=== PATIENT | female | born 1960 ===

== ENCOUNTER 2020-12-21 16:42 | Emergency (ER) | payer OTHER ==
[~2020-12-21] VITALS: Ht 170.2 cm; Wt 66.7 kg
[2020-12-21 16:55] VITALS: BP 159/84
--- NOTE | 2020-12-21 17:00 | NUR ---
RN INTERN: C COLLAR APPLIED. PT PLACED IN WC.
--- NOTE | 2020-12-21 19:46 | NUR ---
[email or web address]@1941
--- NOTE | 2020-12-21 20:10 | NUR ---
[email or web address]@2010
--- NOTE | 2020-12-21 20:22 | NUR ---
[email or web address]@2021
== END 2020-12-21 20:23 | disposition left against medical advice (07) ==
LOC: ED 17:15
DX: S16.1XXA Strain of muscle, fascia and tendon at neck level, initial encounter (principal); S09.90XA Unspecified injury of head, initial encounter; V49.59XA Passenger injured in collision with other motor vehicles in traffic accident, initial encounter; Y93.89 Activity, other specified; Y92.410 Unspecified street and highway as the place of occurrence of the external cause; Y99.8 Other external cause status
CPT/HCPCS: 70450; 72125; 99285